=== PATIENT | female | born 1995 | race American Indian/Alaskan Native ===

== ENCOUNTER 2021-07-23 10:57 | Inpatient (IN) | payer OTHER ==
[~2021-07-23] VITALS: Ht 154.9 cm; Wt 50.8 kg
[2021-07-23] MEDS ORDERED: ACETAMINOPHEN 325 MG TABLET PO PRN (13:00)
[2021-07-23 13:11] VITALS: BP 104/52
[2021-07-23] MEDS ORDERED: BISACODYL 10 MG RECTAL RECTAL SUPPOSITORY PR PRN (13:15)
[2021-07-23] MEDS ORDERED: SIMETHICONE 80 MG CHEWABLE TABLET CHEW PRN (13:15)
[2021-07-23] MEDS ORDERED: MAGNESIUM HYDROXIDE SUSPENSION 30 ML UDCUP PO PRN (13:15)
[2021-07-23] MEDS ORDERED: MELATONIN 5 MG TABLET PO PRN (13:15)
[2021-07-23] MEDS ORDERED: CAMPHOR/MENTHOL 222 ML LOTION TP PRN (13:15)
[2021-07-23] MEDS ORDERED: DiphenhydrAMINE HCL 25 MG/10 ML SOLUTION UDCUP PO PRN (13:15)
[2021-07-23] MEDS ORDERED: ONDANSETRON HCL 4 MG TABLET PO PRN (13:15)
[2021-07-23] MEDS ORDERED: ALPRAZolam 0.25 MG TABLET PO PRN (13:15)
[2021-07-23] MEDS ORDERED: INFLUENZA VIRUS VACCINE QVS 2021-22 (6MO+)/PF 60 MCG/0.5 ML SYRINGE IM. ONE (14:30)
[2021-07-23 15:24] VITALS: BP 101/65
[2021-07-23] MEDS: OxyCODONE HCL 5 MG IR TABLET PO PRN (15:24)
[2021-07-23] MEDS ORDERED: GABAPENTIN 100 MG CAPSULE PO SCH (16:00)
[2021-07-23] MEDS: GABAPENTIN 300 MG CAPSULE PO SCH ×2 (16:29→20:16)
[2021-07-23] MEDS: ACETAMINOPHEN 325 MG TABLET PO SCH (19:54)
[2021-07-23] MEDS: ENOXAPARIN SODIUM 30 MG/0.3 ML PF SYRINGE SQ SCH (20:15)
[2021-07-23] MEDS: DOCUSATE SODIUM 100 MG CAPSULE PO SCH (20:16)
[2021-07-23] MEDS: TraZODone HCL 100 MG TABLET PO SCH (20:16)
[2021-07-23] MEDS: PRAZOSIN HCL 1 MG CAPSULE PO SCH (20:16)
[2021-07-23] MEDS: OxyCODONE HCL 10 MG ER TABLET PO SCH (20:16)
[2021-07-23] MEDS: SENNA 187 MG TABLET PO SCH (20:16)
[2021-07-23] MEDS: CELECOXIB 200 MG CAPSULE PO SCH (20:16)
[2021-07-23] MEDS: -LIDODERM PATCH NOTE- MISC SCH (20:17)
[2021-07-24 03:00] VITALS: BP 101/59
[2021-07-24] MEDS: ACETAMINOPHEN 325 MG TABLET PO SCH ×5 (06:04→23:32)
[2021-07-24] MEDS: POLYETHYLENE GLYCOL 3350 17 GM PACKET PO SCH (09:00)
[2021-07-24] MEDS: ENOXAPARIN SODIUM 30 MG/0.3 ML PF SYRINGE SQ SCH ×2 (09:20→20:47)
[2021-07-24] MEDS: OxyCODONE HCL 10 MG ER TABLET PO SCH ×2 (09:21→20:51)
[2021-07-24] MEDS: GABAPENTIN 300 MG CAPSULE PO SCH ×3 (09:21→20:47)
[2021-07-24] MEDS: DOCUSATE SODIUM 100 MG CAPSULE PO SCH ×2 (09:21→20:47)
[2021-07-24] MEDS: CELECOXIB 200 MG CAPSULE PO SCH ×2 (09:22→20:51)
[2021-07-24] MEDS: ESCITALOPRAM OXALATE 10 MG TABLET PO SCH (09:22)
[2021-07-24] MEDS: LIDOCAINE 5% TRANSDERMAL PATCH TD SCH (09:23)
[2021-07-24 10:13] VITALS: BP 105/56
[2021-07-24 16:15] LABS: BASOPHILS % (AUTO) 0.5 % (0.0-2.0); EOSINOPHILS % (AUTO) 0.7 % (1.0-6.0); HEMATOCRIT 37.8 % (36-46); HEMOGLOBIN 13.2 g/dL (12.0-16.0); LYMPHOCYTES # (AUTO) 1.7 K/uL (1.0-4.8); LYMPHOCYTES % (AUTO) 31.4 % (22.0-44.0); MEAN CORPUSCULAR HEMOGLOBIN 32.5 pg (26.0-34.0); MEAN CORPUSCULAR HGB CONC 34.9 G/dL (31.0-37.0); MEAN CORPUSCULAR VOLUME 93 fL (80-100); MONOCYTES # (AUTO) 0.4 K/uL (0.1-1.0); MONOCYTES % (AUTO) 7.4 % (2.0-9.0); NEUTROPHILS # (AUTO) 3.3 K/uL (1.8-7.7); PLATELET COUNT (AUTO) 209 K/uL (150-450); RED BLOOD CELL COUNT(AUTO) 4.06 MIL/uL (4.00-5.20); RED CELL DISTRIBUTION WIDTH 12.1 % (11.5-14.5)
[2021-07-24 16:18] VITALS: BP 112/66
[2021-07-24 16:39] LABS: ALANINE AMINOTRANSFERASE 40 U/L (12-78); ALBUMIN 3.7 g/dL (3.4-5.0); ALKALINE PHOSPHATASE 96 U/L (46-116); ANION GAP 8 mmol/L (8-16); ASPARTATE AMINOTRANSFERASE 21 U/L (15-37); BILIRUBIN,TOTAL 0.2 mg/dL (0.1-1.0); CALCIUM, TOTAL 8.6 mg/dL (8.8-10.5); CARBON DIOXIDE 27 mmol/L (22-29); CHLORIDE 105 mmol/L (98-107); CREATININE 0.58 mg/dL (0.60-1.30); GLUCOSE,RANDOM 95 mg/dL (70-110); SODIUM SERUM 140 mmol/L (136-145); TOTAL PROTEIN, SERUM 6.8 g/dL (6.4-8.2); UREA NITROGEN, BLOOD 20 mg/dL (7-18)
[2021-07-24 16:43] LABS: GLOMERULAR FILTR. RATE CALC > 60 mL/min (>60)
[2021-07-24 20:45] VITALS: BP 105/61
[2021-07-24] MEDS: PRAZOSIN HCL 1 MG CAPSULE PO SCH (20:47)
[2021-07-24] MEDS: SENNA 187 MG TABLET PO SCH (20:47)
[2021-07-24] MEDS: TraZODone HCL 100 MG TABLET PO SCH (20:47)
[2021-07-24] MEDS: ETHYL ALCOHOL 62% ANTISEPTIC NASAL INHALANT 0.6 ML AMPUL NASAL SCH (20:47)
[2021-07-24] MEDS: -LIDODERM PATCH NOTE- MISC SCH (20:48)
[2021-07-24 23:59] VITALS: BP 116/69
[2021-07-25] MEDS: ACETAMINOPHEN 325 MG TABLET PO SCH ×3 (06:22→17:45)
[2021-07-25] MEDS: POLYETHYLENE GLYCOL 3350 17 GM PACKET PO SCH (09:00)
[2021-07-25] MEDS: CELECOXIB 200 MG CAPSULE PO SCH ×2 (09:16→20:21)
[2021-07-25] MEDS: DOCUSATE SODIUM 100 MG CAPSULE PO SCH ×2 (09:16→20:21)
[2021-07-25] MEDS: ESCITALOPRAM OXALATE 10 MG TABLET PO SCH (09:17)
[2021-07-25] MEDS: OxyCODONE HCL 10 MG ER TABLET PO SCH ×2 (09:17→20:21)
[2021-07-25] MEDS: GABAPENTIN 300 MG CAPSULE PO SCH ×3 (09:17→20:20)
[2021-07-25] MEDS: ENOXAPARIN SODIUM 30 MG/0.3 ML PF SYRINGE SQ SCH ×2 (09:24→20:20)
[2021-07-25] MEDS: ETHYL ALCOHOL 62% ANTISEPTIC NASAL INHALANT 0.6 ML AMPUL NASAL SCH ×2 (09:24→20:20)
[2021-07-25] MEDS: LIDOCAINE 5% TRANSDERMAL PATCH TD SCH (09:25)
[2021-07-25 10:14] VITALS: BP 106/74
[2021-07-25 15:27] VITALS: BP 98/55
[2021-07-25 20:20] VITALS: BP 126/88
[2021-07-25] MEDS: PRAZOSIN HCL 1 MG CAPSULE PO SCH (20:21)
[2021-07-25] MEDS: TraZODone HCL 100 MG TABLET PO SCH (20:21)
[2021-07-25] MEDS: SENNA 187 MG TABLET PO SCH (20:21)
[2021-07-25] MEDS: BACLOFEN 10 MG TABLET PO SCH (20:21)
[2021-07-25] MEDS: -LIDODERM PATCH NOTE- MISC SCH (20:22)
[2021-07-26 06:07] VITALS: BP 92/56
[2021-07-26] MEDS: ACETAMINOPHEN 325 MG TABLET PO SCH ×5 (06:07→23:28)
[2021-07-26] MEDS: POLYETHYLENE GLYCOL 3350 17 GM PACKET PO SCH (08:43)
[2021-07-26] MEDS: BACLOFEN 10 MG TABLET PO SCH ×2 (08:43→20:39)
[2021-07-26] MEDS: ENOXAPARIN SODIUM 30 MG/0.3 ML PF SYRINGE SQ SCH ×2 (08:43→20:38)
[2021-07-26] MEDS: CELECOXIB 200 MG CAPSULE PO SCH ×2 (08:44→20:38)
[2021-07-26] MEDS: DOCUSATE SODIUM 100 MG CAPSULE PO SCH ×2 (08:44→20:38)
[2021-07-26] MEDS: ESCITALOPRAM OXALATE 10 MG TABLET PO SCH (08:44)
[2021-07-26] MEDS: OxyCODONE HCL 10 MG ER TABLET PO SCH ×2 (08:44→20:39)
[2021-07-26] MEDS: GABAPENTIN 300 MG CAPSULE PO SCH ×3 (08:44→20:38)
[2021-07-26] MEDS: ETHYL ALCOHOL 62% ANTISEPTIC NASAL INHALANT 0.6 ML AMPUL NASAL SCH ×2 (08:45→20:39)
[2021-07-26] MEDS: LIDOCAINE 5% TRANSDERMAL PATCH TD SCH (08:45)
[2021-07-26 09:29] VITALS: BP 94/43
[2021-07-26 16:02] VITALS: BP 100/68
[2021-07-26 20:30] VITALS: BP 103/54
[2021-07-26] MEDS: SENNA 187 MG TABLET PO SCH (20:38)
[2021-07-26] MEDS: PRAZOSIN HCL 1 MG CAPSULE PO SCH (20:39)
[2021-07-26] MEDS: -LIDODERM PATCH NOTE- MISC SCH (20:39)
[2021-07-26] MEDS: TraZODone HCL 100 MG TABLET PO SCH (20:39)
[2021-07-26 23:32] VITALS: BP 102/65
[2021-07-27] MEDS: ACETAMINOPHEN 325 MG TABLET PO SCH ×3 (06:14→18:57)
[2021-07-27 08:00] VITALS: BP 80/43
[2021-07-27 09:00] VITALS: BP 105/57
[2021-07-27] MEDS: POLYETHYLENE GLYCOL 3350 17 GM PACKET PO SCH (09:00)
[2021-07-27] MEDS: ETHYL ALCOHOL 62% ANTISEPTIC NASAL INHALANT 0.6 ML AMPUL NASAL SCH ×2 (10:23→21:51)
[2021-07-27] MEDS: DOCUSATE SODIUM 100 MG CAPSULE PO SCH ×2 (10:23→21:52)
[2021-07-27] MEDS: GABAPENTIN 300 MG CAPSULE PO SCH ×3 (10:23→21:52)
[2021-07-27] MEDS: BACLOFEN 10 MG TABLET PO SCH ×2 (10:24→21:59)
[2021-07-27] MEDS: ENOXAPARIN SODIUM 30 MG/0.3 ML PF SYRINGE SQ SCH ×2 (10:25→22:40)
[2021-07-27] MEDS: OxyCODONE HCL 10 MG ER TABLET PO SCH (10:25)
[2021-07-27] MEDS: ESCITALOPRAM OXALATE 10 MG TABLET PO SCH (10:26)
[2021-07-27] MEDS: LIDOCAINE 5% TRANSDERMAL PATCH TD SCH (10:26)
[2021-07-27] MEDS: CELECOXIB 200 MG CAPSULE PO SCH ×2 (10:27→21:53)
[2021-07-27 15:05] VITALS: BP 101/66
[2021-07-27] MEDS: PRAZOSIN HCL 1 MG CAPSULE PO SCH (21:52)
[2021-07-27] MEDS: -LIDODERM PATCH NOTE- MISC SCH (21:52)
[2021-07-27] MEDS: SENNA 187 MG TABLET PO SCH (21:52)
[2021-07-27] MEDS: TraZODone HCL 100 MG TABLET PO SCH (21:53)
[2021-07-28] MEDS: ACETAMINOPHEN 325 MG TABLET PO SCH ×4 (05:41→18:45)
[2021-07-28 05:52] VITALS: BP 92/58
[2021-07-28 09:00] VITALS: BP 95/51
[2021-07-28] MEDS: POLYETHYLENE GLYCOL 3350 17 GM PACKET PO SCH (09:00)
[2021-07-28] MEDS: BACLOFEN 10 MG TABLET PO SCH ×2 (09:29→20:13)
[2021-07-28] MEDS: CELECOXIB 200 MG CAPSULE PO SCH ×2 (09:29→20:13)
[2021-07-28] MEDS: GABAPENTIN 300 MG CAPSULE PO SCH ×3 (09:29→20:14)
[2021-07-28] MEDS: DOCUSATE SODIUM 100 MG CAPSULE PO SCH ×2 (09:29→20:12)
[2021-07-28] MEDS: ESCITALOPRAM OXALATE 10 MG TABLET PO SCH (09:29)
[2021-07-28] MEDS: ENOXAPARIN SODIUM 30 MG/0.3 ML PF SYRINGE SQ SCH ×2 (09:30→20:12)
[2021-07-28] MEDS: LIDOCAINE 5% TRANSDERMAL PATCH TD SCH (09:30)
[2021-07-28] MEDS: ETHYL ALCOHOL 62% ANTISEPTIC NASAL INHALANT 0.6 ML AMPUL NASAL SCH ×2 (09:36→20:13)
[2021-07-28] MEDS: OxyCODONE HCL 5 MG IR TABLET PO PRN (13:55)
[2021-07-28 15:34] LABS: COVID AG,FIA SOURCE NASAL SWAB
[2021-07-28 16:02] VITALS: BP 101/61
[2021-07-28] MEDS: BENZOCAINE/MENTHOL LOZENGE PO PRN (16:45)
[2021-07-28] MEDS: PRAZOSIN HCL 1 MG CAPSULE PO SCH (20:12)
[2021-07-28] MEDS: TraZODone HCL 100 MG TABLET PO SCH (20:12)
[2021-07-28] MEDS: SENNA 187 MG TABLET PO SCH (20:12)
[2021-07-28] MEDS: -LIDODERM PATCH NOTE- MISC SCH (20:13)
[2021-07-28 20:18] VITALS: BP 124/76
[2021-07-29] MEDS: ACETAMINOPHEN 325 MG TABLET PO SCH ×4 (05:25→18:13)
[2021-07-29 05:30] VITALS: BP 91/49
[2021-07-29] MEDS: ETHYL ALCOHOL 62% ANTISEPTIC NASAL INHALANT 0.6 ML AMPUL NASAL SCH ×2 (08:31→20:09)
[2021-07-29] MEDS: ENOXAPARIN SODIUM 30 MG/0.3 ML PF SYRINGE SQ SCH ×2 (08:31→20:09)
[2021-07-29] MEDS: LIDOCAINE 5% TRANSDERMAL PATCH TD SCH (08:32)
[2021-07-29] MEDS: POLYETHYLENE GLYCOL 3350 17 GM PACKET PO SCH (08:32)
[2021-07-29] MEDS: DOCUSATE SODIUM 100 MG CAPSULE PO SCH ×2 (08:32→20:08)
[2021-07-29] MEDS: BACLOFEN 10 MG TABLET PO SCH ×2 (08:33→20:09)
[2021-07-29] MEDS: GABAPENTIN 300 MG CAPSULE PO SCH ×3 (08:33→20:08)
[2021-07-29] MEDS: CELECOXIB 200 MG CAPSULE PO SCH ×2 (08:34→20:09)
[2021-07-29] MEDS: ESCITALOPRAM OXALATE 10 MG TABLET PO SCH (08:34)
[2021-07-29 08:35] VITALS: BP 88/69
[2021-07-29] MEDS: OxyCODONE HCL 5 MG IR TABLET PO PRN (08:35)
[2021-07-29 15:37] VITALS: BP 97/55
[2021-07-29] MEDS: PRAZOSIN HCL 1 MG CAPSULE PO SCH (20:09)
[2021-07-29] MEDS: -LIDODERM PATCH NOTE- MISC SCH (20:09)
[2021-07-29] MEDS: SENNA 187 MG TABLET PO SCH (20:09)
[2021-07-29] MEDS: TraZODone HCL 100 MG TABLET PO SCH (20:09)
[2021-07-29 20:19] VITALS: BP 112/71
[2021-07-30 06:11] VITALS: BP 93/54
[2021-07-30] MEDS: ACETAMINOPHEN 325 MG TABLET PO SCH ×5 (06:11→19:20)
[2021-07-30] MEDS: POLYETHYLENE GLYCOL 3350 17 GM PACKET PO SCH (09:00)
[2021-07-30] MEDS: DOCUSATE SODIUM 100 MG CAPSULE PO SCH ×2 (09:18→20:10)
[2021-07-30] MEDS: ETHYL ALCOHOL 62% ANTISEPTIC NASAL INHALANT 0.6 ML AMPUL NASAL SCH ×2 (09:18→20:10)
[2021-07-30] MEDS: ESCITALOPRAM OXALATE 10 MG TABLET PO SCH (09:19)
[2021-07-30] MEDS: BACLOFEN 10 MG TABLET PO SCH ×2 (09:19→20:11)
[2021-07-30] MEDS: GABAPENTIN 300 MG CAPSULE PO SCH ×3 (09:20→20:12)
[2021-07-30] MEDS: ENOXAPARIN SODIUM 30 MG/0.3 ML PF SYRINGE SQ SCH ×2 (09:20→20:09)
[2021-07-30] MEDS: CELECOXIB 200 MG CAPSULE PO SCH ×2 (09:20→20:13)
[2021-07-30] MEDS: LIDOCAINE 5% TRANSDERMAL PATCH TD SCH (09:21)
[2021-07-30 10:00] VITALS: BP 107/66
[2021-07-30 15:33] VITALS: BP 103/56
[2021-07-30 20:07] VITALS: BP 103/55
[2021-07-30] MEDS: BENZOCAINE/MENTHOL LOZENGE PO PRN (20:10)
[2021-07-30] MEDS: TraZODone HCL 100 MG TABLET PO SCH (20:11)
[2021-07-30] MEDS: PRAZOSIN HCL 1 MG CAPSULE PO SCH (20:11)
[2021-07-30] MEDS: SENNA 187 MG TABLET PO SCH (20:11)
[2021-07-30] MEDS: -LIDODERM PATCH NOTE- MISC SCH (20:37)
[2021-07-30] MEDS: OxyCODONE HCL 5 MG IR TABLET PO PRN (22:11)
[2021-07-31] MEDS: OxyCODONE HCL 5 MG IR TABLET PO PRN (04:56)
[2021-07-31] MEDS: ACETAMINOPHEN 325 MG TABLET PO SCH ×4 (06:00→17:58)
[2021-07-31 08:30] VITALS: BP 116/74
[2021-07-31] MEDS: LIDOCAINE 5% TRANSDERMAL PATCH TD SCH (08:32)
[2021-07-31] MEDS: ENOXAPARIN SODIUM 30 MG/0.3 ML PF SYRINGE SQ SCH ×2 (08:32→22:12)
[2021-07-31] MEDS: GABAPENTIN 300 MG CAPSULE PO SCH ×3 (08:32→22:12)
[2021-07-31] MEDS: ETHYL ALCOHOL 62% ANTISEPTIC NASAL INHALANT 0.6 ML AMPUL NASAL SCH ×2 (08:32→22:13)
[2021-07-31] MEDS: ESCITALOPRAM OXALATE 10 MG TABLET PO SCH (08:33)
[2021-07-31] MEDS: BACLOFEN 10 MG TABLET PO SCH ×2 (08:33→22:14)
[2021-07-31] MEDS: DOCUSATE SODIUM 100 MG CAPSULE PO SCH ×2 (08:33→22:12)
[2021-07-31] MEDS: CELECOXIB 200 MG CAPSULE PO SCH ×2 (08:33→22:13)
[2021-07-31] MEDS: POLYETHYLENE GLYCOL 3350 17 GM PACKET PO SCH (08:40)
[2021-07-31 16:01] VITALS: BP 114/74
[2021-07-31] MEDS: SENNA 187 MG TABLET PO SCH (21:00)
[2021-07-31] MEDS: PRAZOSIN HCL 1 MG CAPSULE PO SCH (22:12)
[2021-07-31] MEDS: TraZODone HCL 100 MG TABLET PO SCH (22:12)
[2021-07-31] MEDS: -LIDODERM PATCH NOTE- MISC SCH (22:13)
[2021-07-31 23:37] VITALS: BP 102/64
[2021-08-01] MEDS: ACETAMINOPHEN 325 MG TABLET PO SCH ×5 (06:10→23:42)
[2021-08-01] MEDS: POLYETHYLENE GLYCOL 3350 17 GM PACKET PO SCH (09:00)
[2021-08-01] MEDS: ETHYL ALCOHOL 62% ANTISEPTIC NASAL INHALANT 0.6 ML AMPUL NASAL SCH ×2 (09:31→21:20)
[2021-08-01] MEDS: ENOXAPARIN SODIUM 30 MG/0.3 ML PF SYRINGE SQ SCH ×2 (09:31→21:21)
[2021-08-01] MEDS: GABAPENTIN 300 MG CAPSULE PO SCH ×3 (09:32→21:21)
[2021-08-01] MEDS: BACLOFEN 10 MG TABLET PO SCH ×2 (09:32→21:21)
[2021-08-01] MEDS: ESCITALOPRAM OXALATE 10 MG TABLET PO SCH (09:32)
[2021-08-01] MEDS: CELECOXIB 200 MG CAPSULE PO SCH ×2 (09:32→21:20)
[2021-08-01] MEDS: DOCUSATE SODIUM 100 MG CAPSULE PO SCH ×2 (09:33→21:20)
[2021-08-01] MEDS: LIDOCAINE 5% TRANSDERMAL PATCH TD SCH (09:38)
[2021-08-01 09:40] VITALS: BP 101/62
[2021-08-01 15:41] VITALS: BP 107/95
[2021-08-01] MEDS: TraZODone HCL 100 MG TABLET PO SCH (21:20)
[2021-08-01] MEDS: SENNA 187 MG TABLET PO SCH (21:21)
[2021-08-01] MEDS: PRAZOSIN HCL 1 MG CAPSULE PO SCH (21:21)
[2021-08-01] MEDS: -LIDODERM PATCH NOTE- MISC SCH (21:23)
[2021-08-02 00:24] VITALS: BP 91/68
[2021-08-02] MEDS: ACETAMINOPHEN 325 MG TABLET PO SCH ×3 (06:31→18:23)
[2021-08-02] MEDS: GABAPENTIN 300 MG CAPSULE PO SCH ×3 (08:07→20:05)
[2021-08-02] MEDS: ETHYL ALCOHOL 62% ANTISEPTIC NASAL INHALANT 0.6 ML AMPUL NASAL SCH ×2 (08:07→20:04)
[2021-08-02] MEDS: DOCUSATE SODIUM 100 MG CAPSULE PO SCH ×2 (08:07→20:05)
[2021-08-02] MEDS: ENOXAPARIN SODIUM 30 MG/0.3 ML PF SYRINGE SQ SCH ×2 (08:08→20:06)
[2021-08-02] MEDS: CELECOXIB 200 MG CAPSULE PO SCH ×2 (08:08→20:04)
[2021-08-02] MEDS: ESCITALOPRAM OXALATE 10 MG TABLET PO SCH (08:08)
[2021-08-02] MEDS: BACLOFEN 10 MG TABLET PO SCH ×2 (08:09→20:05)
[2021-08-02] MEDS: LIDOCAINE 5% TRANSDERMAL PATCH TD SCH (08:09)
[2021-08-02 08:15] VITALS: BP 100/54
[2021-08-02] MEDS: POLYETHYLENE GLYCOL 3350 17 GM PACKET PO SCH (08:19)
[2021-08-02 16:00] VITALS: BP 103/55
[2021-08-02] MEDS: TraZODone HCL 100 MG TABLET PO SCH (20:04)
[2021-08-02] MEDS: -LIDODERM PATCH NOTE- MISC SCH (20:04)
[2021-08-02] MEDS: PRAZOSIN HCL 1 MG CAPSULE PO SCH (20:04)
[2021-08-02] MEDS: SENNA 187 MG TABLET PO SCH (20:05)
[2021-08-02] MEDS ORDERED: TRAZ-257 PO (21:50)
[2021-08-02] MEDS ORDERED: CELE200 PO (21:50)
[2021-08-02] MEDS ORDERED: BACL10TA PO (21:51)
[2021-08-02] MEDS ORDERED: PRAZ1 PO (21:51)
[2021-08-02] MEDS ORDERED: GABA-1181 PO (21:52)
[2021-08-02] MEDS ORDERED: ESCI-8 PO (21:53)
[2021-08-02] MEDS ORDERED: DOCU-270 PO (21:54)
[2021-08-02] MEDS ORDERED: LIDO700A15 TP (21:55)
[2021-08-03] MEDS: ACETAMINOPHEN 325 MG TABLET PO SCH ×5 (05:23→22:47)
[2021-08-03 06:00] VITALS: BP 105/57
[2021-08-03 08:00] VITALS: BP 116/68
[2021-08-03] MEDS: ETHYL ALCOHOL 62% ANTISEPTIC NASAL INHALANT 0.6 ML AMPUL NASAL SCH ×2 (08:15→22:47)
[2021-08-03] MEDS: BACLOFEN 10 MG TABLET PO SCH ×2 (08:16→22:46)
[2021-08-03] MEDS: ESCITALOPRAM OXALATE 10 MG TABLET PO SCH (08:16)
[2021-08-03] MEDS: ENOXAPARIN SODIUM 30 MG/0.3 ML PF SYRINGE SQ SCH ×2 (08:16→22:46)
[2021-08-03] MEDS: LIDOCAINE 5% TRANSDERMAL PATCH TD SCH (08:16)
[2021-08-03] MEDS: DOCUSATE SODIUM 100 MG CAPSULE PO SCH ×2 (08:16→21:00)
[2021-08-03] MEDS: GABAPENTIN 300 MG CAPSULE PO SCH ×3 (08:16→22:46)
[2021-08-03] MEDS: POLYETHYLENE GLYCOL 3350 17 GM PACKET PO SCH (08:17)
[2021-08-03] MEDS: CELECOXIB 200 MG CAPSULE PO SCH ×2 (08:17→22:47)
[2021-08-03 16:33] VITALS: BP 98/57
[2021-08-03] MEDS: SENNA 187 MG TABLET PO SCH (21:00)
[2021-08-03] MEDS: TraZODone HCL 100 MG TABLET PO SCH (22:47)
[2021-08-03] MEDS: PRAZOSIN HCL 1 MG CAPSULE PO SCH (22:47)
[2021-08-03] MEDS: -LIDODERM PATCH NOTE- MISC SCH (22:47)
[2021-08-04 00:06] VITALS: BP 112/78
[2021-08-04] MEDS: ACETAMINOPHEN 325 MG TABLET PO SCH ×4 (06:27→23:26)
[2021-08-04] MEDS: ETHYL ALCOHOL 62% ANTISEPTIC NASAL INHALANT 0.6 ML AMPUL NASAL SCH ×2 (08:36→20:12)
[2021-08-04] MEDS: ENOXAPARIN SODIUM 30 MG/0.3 ML PF SYRINGE SQ SCH ×2 (08:37→20:11)
[2021-08-04] MEDS: GABAPENTIN 300 MG CAPSULE PO SCH ×3 (08:37→20:12)
[2021-08-04] MEDS: LIDOCAINE 5% TRANSDERMAL PATCH TD SCH (08:38)
[2021-08-04] MEDS: BACLOFEN 10 MG TABLET PO SCH ×2 (08:38→20:12)
[2021-08-04] MEDS: ESCITALOPRAM OXALATE 10 MG TABLET PO SCH (08:38)
[2021-08-04] MEDS: CELECOXIB 200 MG CAPSULE PO SCH ×2 (08:39→20:12)
[2021-08-04] MEDS: DOCUSATE SODIUM 100 MG CAPSULE PO SCH ×2 (08:39→20:12)
[2021-08-04 09:00] VITALS: BP 103/66
[2021-08-04] MEDS: POLYETHYLENE GLYCOL 3350 17 GM PACKET PO SCH (09:00)
[2021-08-04 15:45] VITALS: BP 96/62
[2021-08-04 19:47] VITALS: BP 102/58
[2021-08-04] MEDS: -LIDODERM PATCH NOTE- MISC SCH (20:12)
[2021-08-04] MEDS: TraZODone HCL 100 MG TABLET PO SCH (20:12)
[2021-08-04] MEDS: PRAZOSIN HCL 1 MG CAPSULE PO SCH (20:12)
[2021-08-04] MEDS: SENNA 187 MG TABLET PO SCH (20:13)
[2021-08-04] MEDS ORDERED: ALPRAZolam 0.25 MG TABLET PO ONE (20:30)
[2021-08-04 23:30] VITALS: BP 77/45
[2021-08-04 23:35] VITALS: BP 77/40
[2021-08-05 00:30] VITALS: BP 80/44
[2021-08-05 06:13] VITALS: BP 92/53
[2021-08-05] MEDS: ACETAMINOPHEN 325 MG TABLET PO SCH ×3 (06:37→19:26)
[2021-08-05] MEDS: POLYETHYLENE GLYCOL 3350 17 GM PACKET PO SCH (09:00)
[2021-08-05] MEDS: LIDOCAINE 5% TRANSDERMAL PATCH TD SCH (09:07)
[2021-08-05] MEDS: ETHYL ALCOHOL 62% ANTISEPTIC NASAL INHALANT 0.6 ML AMPUL NASAL SCH ×2 (09:08→21:05)
[2021-08-05] MEDS: ESCITALOPRAM OXALATE 10 MG TABLET PO SCH (09:08)
[2021-08-05] MEDS: CELECOXIB 200 MG CAPSULE PO SCH ×2 (09:08→21:05)
[2021-08-05] MEDS: DOCUSATE SODIUM 100 MG CAPSULE PO SCH ×2 (09:08→21:00)
[2021-08-05] MEDS: ENOXAPARIN SODIUM 30 MG/0.3 ML PF SYRINGE SQ SCH ×2 (09:08→21:06)
[2021-08-05] MEDS: GABAPENTIN 300 MG CAPSULE PO SCH ×3 (09:08→21:05)
[2021-08-05] MEDS: BACLOFEN 10 MG TABLET PO SCH ×2 (09:08→21:06)
[2021-08-05 10:15] VITALS: BP 111/59
[2021-08-05 15:54] VITALS: BP 109/54
[2021-08-05] MEDS: SENNA 187 MG TABLET PO SCH ×2 (21:00→21:05)
[2021-08-05] MEDS: PRAZOSIN HCL 1 MG CAPSULE PO SCH (21:05)
[2021-08-05] MEDS: TraZODone HCL 100 MG TABLET PO SCH (21:05)
[2021-08-05] MEDS: -LIDODERM PATCH NOTE- MISC SCH (21:07)
[2021-08-05 21:16] VITALS: BP 100/64
[2021-08-06] MEDS: ACETAMINOPHEN 325 MG TABLET PO SCH ×5 (05:38→23:07)
[2021-08-06 06:00] VITALS: BP 89/55
[2021-08-06 07:17] VITALS: BP 88/54
[2021-08-06] MEDS: CELECOXIB 200 MG CAPSULE PO SCH ×2 (08:04→20:10)
[2021-08-06] MEDS: GABAPENTIN 300 MG CAPSULE PO SCH ×3 (08:04→20:08)
[2021-08-06] MEDS: ENOXAPARIN SODIUM 30 MG/0.3 ML PF SYRINGE SQ SCH ×2 (08:04→20:09)
[2021-08-06] MEDS: ESCITALOPRAM OXALATE 10 MG TABLET PO SCH (08:05)
[2021-08-06] MEDS: ETHYL ALCOHOL 62% ANTISEPTIC NASAL INHALANT 0.6 ML AMPUL NASAL SCH ×2 (08:05→20:08)
[2021-08-06] MEDS: LIDOCAINE 5% TRANSDERMAL PATCH TD SCH (08:05)
[2021-08-06] MEDS: POLYETHYLENE GLYCOL 3350 17 GM PACKET PO SCH (08:06)
[2021-08-06] MEDS: DOCUSATE SODIUM 100 MG CAPSULE PO SCH ×2 (08:06→20:08)
[2021-08-06] MEDS: BACLOFEN 10 MG TABLET PO SCH ×2 (08:12→20:09)
[2021-08-06 10:33] VITALS: BP 102/53
[2021-08-06 15:18] VITALS: BP 120/77
[2021-08-06 20:06] VITALS: BP 113/73
[2021-08-06] MEDS: SENNA 187 MG TABLET PO SCH (20:08)
[2021-08-06] MEDS: -LIDODERM PATCH NOTE- MISC SCH (20:08)
[2021-08-06] MEDS: TraZODone HCL 100 MG TABLET PO SCH (20:09)
[2021-08-06] MEDS: PRAZOSIN HCL 1 MG CAPSULE PO SCH (20:10)
[2021-08-06 23:00] VITALS: BP 105/65
[2021-08-07] MEDS: ACETAMINOPHEN 325 MG TABLET PO SCH ×4 (05:44→23:31)
[2021-08-07] MEDS: LIDOCAINE 5% TRANSDERMAL PATCH TD SCH (08:45)
[2021-08-07] MEDS: ENOXAPARIN SODIUM 30 MG/0.3 ML PF SYRINGE SQ SCH ×2 (08:46→20:30)
[2021-08-07] MEDS: CELECOXIB 200 MG CAPSULE PO SCH ×2 (08:46→20:30)
[2021-08-07] MEDS: ESCITALOPRAM OXALATE 10 MG TABLET PO SCH (08:46)
[2021-08-07] MEDS: DOCUSATE SODIUM 100 MG CAPSULE PO SCH ×2 (08:46→20:30)
[2021-08-07] MEDS: BACLOFEN 10 MG TABLET PO SCH ×2 (08:46→20:30)
[2021-08-07] MEDS: ETHYL ALCOHOL 62% ANTISEPTIC NASAL INHALANT 0.6 ML AMPUL NASAL SCH ×2 (08:46→20:31)
[2021-08-07] MEDS: GABAPENTIN 300 MG CAPSULE PO SCH ×3 (08:46→20:30)
[2021-08-07] MEDS: POLYETHYLENE GLYCOL 3350 17 GM PACKET PO SCH (08:47)
[2021-08-07 09:05] VITALS: BP 93/55
[2021-08-07 13:17] VITALS: BP 104/49
[2021-08-07 15:47] VITALS: BP 100/56
[2021-08-07 20:28] VITALS: BP 127/74
[2021-08-07] MEDS: SENNA 187 MG TABLET PO SCH (20:30)
[2021-08-07] MEDS: PRAZOSIN HCL 1 MG CAPSULE PO SCH (20:30)
[2021-08-07] MEDS: -LIDODERM PATCH NOTE- MISC SCH (20:31)
[2021-08-07] MEDS: TraZODone HCL 100 MG TABLET PO SCH (20:44)
[2021-08-08] MEDS: ACETAMINOPHEN 325 MG TABLET PO SCH ×4 (05:50→23:04)
[2021-08-08 06:03] VITALS: BP 92/46
[2021-08-08] MEDS: POLYETHYLENE GLYCOL 3350 17 GM PACKET PO SCH (09:00)
[2021-08-08] MEDS: LIDOCAINE 5% TRANSDERMAL PATCH TD SCH (09:45)
[2021-08-08] MEDS: ETHYL ALCOHOL 62% ANTISEPTIC NASAL INHALANT 0.6 ML AMPUL NASAL SCH ×2 (09:45→21:03)
[2021-08-08] MEDS: BACLOFEN 10 MG TABLET PO SCH ×2 (09:45→21:03)
[2021-08-08] MEDS: DOCUSATE SODIUM 100 MG CAPSULE PO SCH ×2 (09:45→21:02)
[2021-08-08] MEDS: ENOXAPARIN SODIUM 30 MG/0.3 ML PF SYRINGE SQ SCH ×2 (09:45→21:02)
[2021-08-08] MEDS: CELECOXIB 200 MG CAPSULE PO SCH ×2 (09:46→21:03)
[2021-08-08] MEDS: GABAPENTIN 300 MG CAPSULE PO SCH ×3 (09:46→21:02)
[2021-08-08] MEDS: ESCITALOPRAM OXALATE 10 MG TABLET PO SCH (09:46)
[2021-08-08 09:50] VITALS: BP 99/56
[2021-08-08] MEDS: BENZOCAINE/MENTHOL LOZENGE PO PRN (11:21)
[2021-08-08 11:55] LABS: COVID AG,FIA SOURCE NASAL SWAB
[2021-08-08 15:09] VITALS: BP 91/65
[2021-08-08] MEDS: PRAZOSIN HCL 1 MG CAPSULE PO SCH (21:02)
[2021-08-08] MEDS: SENNA 187 MG TABLET PO SCH (21:02)
[2021-08-08] MEDS: TraZODone HCL 100 MG TABLET PO SCH (21:03)
[2021-08-08] MEDS: -LIDODERM PATCH NOTE- MISC SCH (21:04)
[2021-08-08 23:32] VITALS: BP 112/61
[2021-08-09] MEDS: ACETAMINOPHEN 325 MG TABLET PO SCH ×4 (06:22→23:12)
[2021-08-09] MEDS: DOCUSATE SODIUM 100 MG CAPSULE PO SCH ×2 (08:03→21:44)
[2021-08-09] MEDS: GABAPENTIN 300 MG CAPSULE PO SCH ×3 (08:03→21:44)
[2021-08-09] MEDS: BACLOFEN 10 MG TABLET PO SCH ×2 (08:03→21:44)
[2021-08-09] MEDS: ETHYL ALCOHOL 62% ANTISEPTIC NASAL INHALANT 0.6 ML AMPUL NASAL SCH ×2 (08:03→21:43)
[2021-08-09] MEDS: CELECOXIB 200 MG CAPSULE PO SCH ×2 (08:03→21:44)
[2021-08-09] MEDS: ESCITALOPRAM OXALATE 10 MG TABLET PO SCH (08:03)
[2021-08-09] MEDS: LIDOCAINE 5% TRANSDERMAL PATCH TD SCH (08:05)
[2021-08-09 08:20] VITALS: BP 103/61
[2021-08-09] MEDS: ENOXAPARIN SODIUM 30 MG/0.3 ML PF SYRINGE SQ SCH ×2 (08:26→21:45)
[2021-08-09] MEDS: POLYETHYLENE GLYCOL 3350 17 GM PACKET PO SCH (08:26)
[2021-08-09 16:15] VITALS: BP 101/62
[2021-08-09 21:00] VITALS: BP 110/64
[2021-08-09] MEDS: -LIDODERM PATCH NOTE- MISC SCH (21:43)
[2021-08-09] MEDS: TraZODone HCL 100 MG TABLET PO SCH (21:44)
[2021-08-09] MEDS: SENNA 187 MG TABLET PO SCH (21:44)
[2021-08-09] MEDS: PRAZOSIN HCL 1 MG CAPSULE PO SCH (21:44)
[2021-08-09 23:00] VITALS: BP 99/65
[2021-08-10] MEDS: ACETAMINOPHEN 325 MG TABLET PO SCH ×4 (06:25→23:28)
[2021-08-10] MEDS: POLYETHYLENE GLYCOL 3350 17 GM PACKET PO SCH (09:00)
[2021-08-10] MEDS: DOCUSATE SODIUM 100 MG CAPSULE PO SCH ×2 (09:00→20:31)
[2021-08-10 09:27] VITALS: BP 92/54
[2021-08-10] MEDS: LIDOCAINE 5% TRANSDERMAL PATCH TD SCH (09:58)
[2021-08-10] MEDS: ESCITALOPRAM OXALATE 10 MG TABLET PO SCH (09:58)
[2021-08-10] MEDS: GABAPENTIN 300 MG CAPSULE PO SCH ×3 (09:58→20:31)
[2021-08-10] MEDS: ENOXAPARIN SODIUM 30 MG/0.3 ML PF SYRINGE SQ SCH ×2 (09:58→20:31)
[2021-08-10] MEDS: CELECOXIB 200 MG CAPSULE PO SCH ×2 (09:59→20:31)
[2021-08-10] MEDS: BACLOFEN 10 MG TABLET PO SCH ×2 (09:59→20:32)
[2021-08-10] MEDS: ETHYL ALCOHOL 62% ANTISEPTIC NASAL INHALANT 0.6 ML AMPUL NASAL SCH ×2 (09:59→20:31)
[2021-08-10 17:05] VITALS: BP 107/76
[2021-08-10] MEDS: PRAZOSIN HCL 1 MG CAPSULE PO SCH (20:31)
[2021-08-10] MEDS: TraZODone HCL 100 MG TABLET PO SCH (20:31)
[2021-08-10] MEDS: SENNA 187 MG TABLET PO SCH (20:31)
[2021-08-10] MEDS: -LIDODERM PATCH NOTE- MISC SCH (20:37)
[2021-08-10 23:30] VITALS: BP 77/45
[2021-08-11 06:00] VITALS: BP 88/49
[2021-08-11] MEDS: ACETAMINOPHEN 325 MG TABLET PO SCH ×4 (06:35→23:35)
[2021-08-11 07:19] VITALS: BP 98/56
[2021-08-11] MEDS: POLYETHYLENE GLYCOL 3350 17 GM PACKET PO SCH (09:00)
[2021-08-11] MEDS: DOCUSATE SODIUM 100 MG CAPSULE PO SCH ×2 (09:00→20:49)
[2021-08-11] MEDS: CELECOXIB 200 MG CAPSULE PO SCH ×2 (09:18→20:48)
[2021-08-11] MEDS: GABAPENTIN 300 MG CAPSULE PO SCH ×3 (09:18→20:48)
[2021-08-11] MEDS: ESCITALOPRAM OXALATE 10 MG TABLET PO SCH (09:18)
[2021-08-11] MEDS: BACLOFEN 10 MG TABLET PO SCH ×2 (09:19→20:48)
[2021-08-11] MEDS: LIDOCAINE 5% TRANSDERMAL PATCH TD SCH (09:19)
[2021-08-11] MEDS: ENOXAPARIN SODIUM 30 MG/0.3 ML PF SYRINGE SQ SCH ×2 (09:19→20:48)
[2021-08-11] MEDS: ETHYL ALCOHOL 62% ANTISEPTIC NASAL INHALANT 0.6 ML AMPUL NASAL SCH ×2 (09:24→20:48)
[2021-08-11 15:20] VITALS: BP 117/71
[2021-08-11] MEDS: BusPIRone HCL 5 MG TABLET PO SCH ×2 (16:45→20:47)
[2021-08-11] MEDS: SENNA 187 MG TABLET PO SCH (20:48)
[2021-08-11] MEDS: -LIDODERM PATCH NOTE- MISC SCH (20:49)
[2021-08-11 21:47] VITALS: BP 101/51
[2021-08-11] MEDS: PRAZOSIN HCL 1 MG CAPSULE PO SCH (21:49)
[2021-08-11] MEDS: TraZODone HCL 100 MG TABLET PO SCH (21:49)
[2021-08-11 23:00] VITALS: BP 104/43
[2021-08-12 06:34] VITALS: BP 98/58
[2021-08-12] MEDS: ACETAMINOPHEN 325 MG TABLET PO SCH ×3 (06:38→19:19)
[2021-08-12 08:07] VITALS: BP 90/55
[2021-08-12] MEDS: ETHYL ALCOHOL 62% ANTISEPTIC NASAL INHALANT 0.6 ML AMPUL NASAL SCH ×2 (08:10→22:19)
[2021-08-12] MEDS: ENOXAPARIN SODIUM 30 MG/0.3 ML PF SYRINGE SQ SCH ×2 (08:10→22:17)
[2021-08-12] MEDS: GABAPENTIN 300 MG CAPSULE PO SCH ×3 (08:11→20:54)
[2021-08-12] MEDS: BusPIRone HCL 5 MG TABLET PO SCH ×3 (08:11→20:54)
[2021-08-12] MEDS: ESCITALOPRAM OXALATE 10 MG TABLET PO SCH (08:11)
[2021-08-12] MEDS: CELECOXIB 200 MG CAPSULE PO SCH ×2 (08:11→22:18)
[2021-08-12] MEDS: LIDOCAINE 5% TRANSDERMAL PATCH TD SCH (08:11)
[2021-08-12] MEDS: DOCUSATE SODIUM 100 MG CAPSULE PO SCH ×2 (08:17→22:18)
[2021-08-12] MEDS: BACLOFEN 10 MG TABLET PO SCH ×2 (08:17→22:18)
[2021-08-12] MEDS: POLYETHYLENE GLYCOL 3350 17 GM PACKET PO SCH (08:17)
[2021-08-12] MEDS: OxyCODONE HCL 5 MG IR TABLET PO PRN (10:03)
[2021-08-12 16:01] VITALS: BP 99/47
[2021-08-12 22:15] VITALS: BP 117/81
[2021-08-12] MEDS: -LIDODERM PATCH NOTE- MISC SCH (22:18)
[2021-08-12] MEDS: SENNA 187 MG TABLET PO SCH (22:18)
[2021-08-12] MEDS: PRAZOSIN HCL 1 MG CAPSULE PO SCH (22:18)
[2021-08-12] MEDS: TraZODone HCL 100 MG TABLET PO SCH (22:18)
[2021-08-12 23:30] VITALS: BP 110/71
[2021-08-13] MEDS: ACETAMINOPHEN 325 MG TABLET PO SCH ×5 (05:52→23:36)
[2021-08-13] MEDS: ETHYL ALCOHOL 62% ANTISEPTIC NASAL INHALANT 0.6 ML AMPUL NASAL SCH ×2 (08:25→20:30)
[2021-08-13] MEDS: DOCUSATE SODIUM 100 MG CAPSULE PO SCH ×2 (08:25→20:29)
[2021-08-13] MEDS: ESCITALOPRAM OXALATE 10 MG TABLET PO SCH (08:25)
[2021-08-13] MEDS: GABAPENTIN 300 MG CAPSULE PO SCH ×3 (08:25→20:29)
[2021-08-13] MEDS: BACLOFEN 10 MG TABLET PO SCH ×2 (08:26→20:29)
[2021-08-13] MEDS: BusPIRone HCL 5 MG TABLET PO SCH ×3 (08:26→20:29)
[2021-08-13] MEDS: CELECOXIB 200 MG CAPSULE PO SCH ×2 (08:26→20:29)
[2021-08-13] MEDS: LIDOCAINE 5% TRANSDERMAL PATCH TD SCH (08:27)
[2021-08-13] MEDS: ENOXAPARIN SODIUM 30 MG/0.3 ML PF SYRINGE SQ SCH ×2 (08:27→20:28)
[2021-08-13] MEDS: POLYETHYLENE GLYCOL 3350 17 GM PACKET PO SCH (08:36)
[2021-08-13 08:50] VITALS: BP 88/57
[2021-08-13 12:20] VITALS: BP 118/67
[2021-08-13] MEDS ORDERED: POLYETHYLENE GLYCOL 3350 17 GM PACKET PO PRN (12:30)
[2021-08-13 15:51] VITALS: BP 103/52
[2021-08-13] MEDS: SENNA 187 MG TABLET PO SCH (20:28)
[2021-08-13] MEDS: -LIDODERM PATCH NOTE- MISC SCH (20:30)
[2021-08-13 22:11] VITALS: BP 123/81
[2021-08-13] MEDS: PRAZOSIN HCL 1 MG CAPSULE PO SCH (22:12)
[2021-08-13] MEDS: TraZODone HCL 100 MG TABLET PO SCH (22:12)
[2021-08-13 23:00] VITALS: BP 104/68
[2021-08-14] MEDS: ACETAMINOPHEN 325 MG TABLET PO SCH ×4 (06:02→23:43)
[2021-08-14 08:00] VITALS: BP 87/47
[2021-08-14] MEDS: LIDOCAINE 5% TRANSDERMAL PATCH TD SCH (08:29)
[2021-08-14] MEDS: DOCUSATE SODIUM 100 MG CAPSULE PO SCH ×2 (08:30→20:16)
[2021-08-14] MEDS: ESCITALOPRAM OXALATE 10 MG TABLET PO SCH (08:30)
[2021-08-14] MEDS: ENOXAPARIN SODIUM 30 MG/0.3 ML PF SYRINGE SQ SCH ×2 (08:30→20:16)
[2021-08-14] MEDS: BusPIRone HCL 5 MG TABLET PO SCH ×3 (08:31→20:20)
[2021-08-14] MEDS: ETHYL ALCOHOL 62% ANTISEPTIC NASAL INHALANT 0.6 ML AMPUL NASAL SCH ×2 (08:31→20:15)
[2021-08-14] MEDS: CELECOXIB 200 MG CAPSULE PO SCH ×2 (08:31→20:22)
[2021-08-14] MEDS: GABAPENTIN 300 MG CAPSULE PO SCH ×3 (08:31→20:17)
[2021-08-14] MEDS: BACLOFEN 10 MG TABLET PO SCH ×2 (08:31→20:18)
[2021-08-14] MEDS: OxyCODONE HCL 5 MG IR TABLET PO PRN ×2 (08:43→14:09)
[2021-08-14 16:10] VITALS: BP 125/72
[2021-08-14] MEDS: SENNA 187 MG TABLET PO SCH (20:16)
[2021-08-14] MEDS: PRAZOSIN HCL 1 MG CAPSULE PO SCH ×2 (20:17→22:29)
[2021-08-14] MEDS: TraZODone HCL 100 MG TABLET PO SCH ×2 (20:19→22:30)
[2021-08-14] MEDS: -LIDODERM PATCH NOTE- MISC SCH (20:20)
[2021-08-14 21:00] VITALS: BP 115/63
[2021-08-14 23:21] VITALS: BP 89/50
[2021-08-15] MEDS: ACETAMINOPHEN 325 MG TABLET PO SCH ×4 (06:15→23:48)
[2021-08-15 06:22] VITALS: BP 100/66
[2021-08-15 08:00] VITALS: BP 109/57
[2021-08-15] MEDS: DOCUSATE SODIUM 100 MG CAPSULE PO SCH ×2 (08:20→21:33)
[2021-08-15] MEDS: ESCITALOPRAM OXALATE 10 MG TABLET PO SCH (08:20)
[2021-08-15] MEDS: BACLOFEN 10 MG TABLET PO SCH ×2 (08:20→21:33)
[2021-08-15] MEDS: BusPIRone HCL 5 MG TABLET PO SCH ×3 (08:20→21:35)
[2021-08-15] MEDS: GABAPENTIN 300 MG CAPSULE PO SCH ×3 (08:20→21:35)
[2021-08-15] MEDS: ETHYL ALCOHOL 62% ANTISEPTIC NASAL INHALANT 0.6 ML AMPUL NASAL SCH ×2 (08:21→21:32)
[2021-08-15] MEDS: LIDOCAINE 5% TRANSDERMAL PATCH TD SCH (08:21)
[2021-08-15] MEDS: ENOXAPARIN SODIUM 30 MG/0.3 ML PF SYRINGE SQ SCH ×2 (08:21→21:32)
[2021-08-15] MEDS: CELECOXIB 200 MG CAPSULE PO SCH ×2 (08:21→21:34)
[2021-08-15 16:03] VITALS: BP 114/59
[2021-08-15 21:15] VITALS: BP 116/76
[2021-08-15] MEDS: -LIDODERM PATCH NOTE- MISC SCH (21:32)
[2021-08-15] MEDS: SENNA 187 MG TABLET PO SCH (21:33)
[2021-08-15] MEDS: TraZODone HCL 100 MG TABLET PO SCH (21:35)
[2021-08-15] MEDS: PRAZOSIN HCL 1 MG CAPSULE PO SCH (21:35)
[2021-08-15 23:30] VITALS: BP 89/55
[2021-08-16] MEDS: ACETAMINOPHEN 325 MG TABLET PO SCH ×4 (06:25→23:06)
[2021-08-16 06:34] VITALS: BP 84/47
[2021-08-16 08:05] VITALS: BP 88/57
[2021-08-16] MEDS: ENOXAPARIN SODIUM 30 MG/0.3 ML PF SYRINGE SQ SCH ×2 (08:06→20:05)
[2021-08-16] MEDS: ETHYL ALCOHOL 62% ANTISEPTIC NASAL INHALANT 0.6 ML AMPUL NASAL SCH ×2 (08:06→20:05)
[2021-08-16] MEDS: LIDOCAINE 5% TRANSDERMAL PATCH TD SCH (08:06)
[2021-08-16] MEDS: BusPIRone HCL 5 MG TABLET PO SCH ×3 (08:07→20:05)
[2021-08-16] MEDS: CELECOXIB 200 MG CAPSULE PO SCH ×2 (08:07→20:06)
[2021-08-16] MEDS: ESCITALOPRAM OXALATE 10 MG TABLET PO SCH (08:07)
[2021-08-16] MEDS: BACLOFEN 10 MG TABLET PO SCH ×2 (08:07→20:05)
[2021-08-16] MEDS: GABAPENTIN 300 MG CAPSULE PO SCH ×3 (08:07→20:05)
[2021-08-16] MEDS: DOCUSATE SODIUM 100 MG CAPSULE PO SCH ×2 (08:08→20:05)
[2021-08-16 10:30] VITALS: BP 122/77
[2021-08-16 16:14] VITALS: BP 107/65
[2021-08-16] MEDS: SENNA 187 MG TABLET PO SCH (20:05)
[2021-08-16] MEDS: -LIDODERM PATCH NOTE- MISC SCH (20:06)
[2021-08-16 22:06] VITALS: BP 131/78
[2021-08-16] MEDS ORDERED: BUSP5TAB20 PO (22:14)
[2021-08-16] MEDS: TraZODone HCL 100 MG TABLET PO SCH (22:20)
[2021-08-16] MEDS: PRAZOSIN HCL 1 MG CAPSULE PO SCH (22:20)
[2021-08-16 23:53] VITALS: BP 101/61
[2021-08-17] MEDS: ACETAMINOPHEN 325 MG TABLET PO SCH ×4 (05:31→17:47)
[2021-08-17] MEDS: GABAPENTIN 300 MG CAPSULE PO SCH ×2 (08:07→15:23)
[2021-08-17] MEDS: LIDOCAINE 5% TRANSDERMAL PATCH TD SCH (08:07)
[2021-08-17] MEDS: ENOXAPARIN SODIUM 30 MG/0.3 ML PF SYRINGE SQ SCH (08:07)
[2021-08-17] MEDS: ETHYL ALCOHOL 62% ANTISEPTIC NASAL INHALANT 0.6 ML AMPUL NASAL SCH (08:07)
[2021-08-17] MEDS: ESCITALOPRAM OXALATE 10 MG TABLET PO SCH (08:08)
[2021-08-17] MEDS: BusPIRone HCL 5 MG TABLET PO SCH ×2 (08:08→15:23)
[2021-08-17] MEDS: BACLOFEN 10 MG TABLET PO SCH (08:08)
[2021-08-17] MEDS: CELECOXIB 200 MG CAPSULE PO SCH (08:08)
[2021-08-17] MEDS: DOCUSATE SODIUM 100 MG CAPSULE PO SCH (08:29)
[2021-08-17 08:34] VITALS: BP 93/50
[2021-08-17 15:25] VITALS: BP 95/61
[2021-08-17] MEDS ORDERED: ACET-2247 PO (15:55)
[2021-08-17] MEDS ORDERED: SENN8.6T20 PO (15:55)
[2021-08-18] MEDS ORDERED: ASPIRIN 325 MG TABLET PO SCH (09:00)
== END 2021-08-17 18:49 | DRG 964 ==
LOC: 2WR 12:15
PROVIDERS: ADMIT Physical Medicine & Rehabilitation; ATTEND Physical Medicine & Rehabilitation
DX: S32.9XXA Fracture of unspecified parts of lumbosacral spine and pelvis, initial encounter for closed fracture (principal); S22.39XA Fracture of one rib, unspecified side, initial encounter for closed fracture; S36.113A Laceration of liver, unspecified degree, initial encounter; S32.059A Unspecified fracture of fifth lumbar vertebra, initial encounter for closed fracture; S32.018A Other fracture of first lumbar vertebra, initial encounter for closed fracture; S32.028A Other fracture of second lumbar vertebra, initial encounter for closed fracture; S32.038A Other fracture of third lumbar vertebra, initial encounter for closed fracture; S32.048A Other fracture of fourth lumbar vertebra, initial encounter for closed fracture; F33.1 Major depressive disorder, recurrent, moderate; S42.002A Fracture of unspecified part of left clavicle, initial encounter for closed fracture; F43.10 Post-traumatic stress disorder, unspecified; R53.81 Other malaise; V89.2XXA Person injured in unspecified motor-vehicle accident, traffic, initial encounter; Y93.89 Activity, other specified; Y92.89 Other specified places as the place of occurrence of the external cause; Y99.8 Other external cause status; Z91.010 Allergy to peanuts; Z91.011 Allergy to milk products
CPT/HCPCS: 80053; 83735; 85025; 87081; 90686; 92507; 92523; 93970; 97110; 97112; 97116; 97140; 97162; 97166; 97530; 97535; 99366; J1650